=== PATIENT | female | born 1945 | race Caucasian/White ===

== ENCOUNTER 2021-03-26 07:32 | Day surgery (SDC) | payer MEDICARE, MEDICAID ==
[~2021-03-26] VITALS: Ht 153.2 cm; Wt 87.7 kg
[~2021-03-26 07:32] MED LIST: AMLO-258 PO; ASPI-1450 PO; ASPIRIN 81 MG CHEWABLE TABLET PO ONE; BENA10TA76 PO; CHL25 PO; DIAZEPAM 5 MG TABLET PO ONE; DiphenhydrAMINE HCL 50 MG CAPSULE PO ONE; ICOS0.5C PO; ROSU10TA72 PO; SODIUM CHLORIDE 0.9% 1,000 ML IV SCH
[2021-03-26 08:31] LABS: GLUCOMETER DEV NAME(LOC) SDS.; GLUCOSE,POINT OF CARE 103 MG/DL (70-110)
[2021-03-26] MEDS ORDERED: ASPIRIN 81 MG CHEWABLE TABLET ONE (08:36)
[2021-03-26] MEDS ORDERED: DIAZEPAM 5 MG TABLET ONE (08:36)
[2021-03-26] MEDS ORDERED: DiphenhydrAMINE HCL 50 MG CAPSULE ONE (08:37)
[2021-03-26] MEDS ORDERED: DIAZEPAM 5 MG TABLET PO ONE (08:45)
[2021-03-26] MEDS ORDERED: DiphenhydrAMINE HCL 50 MG CAPSULE PO ONE (08:45)
[2021-03-26] MEDS ORDERED: ASPIRIN 81 MG CHEWABLE TABLET PO ONE (08:45)
[2021-03-26] MEDS ORDERED: IOHEXOL 300 MG/ML 150 ML VIAL ONE (09:58)
[2021-03-26] MEDS ORDERED: LIDOCAINE/PF 1% 30 ML VIAL ONE (09:58)
[2021-03-26] MEDS ORDERED: IOHEXOL 300 MG/ML 100 ML VIAL ONE (09:58)
[2021-03-26] MEDS ORDERED: IOHEXOL 300 MG/ML 50 ML VIAL ONE (09:58)
[2021-03-26] MEDS ORDERED: SODIUM BICARBONATE 50 MEQ/50 ML VIAL ONE (09:58)
[2021-03-26] MEDS ORDERED: HEPARIN SODIUM 1000 UNITS/NS 1,000 ML ONE (09:59)
[2021-03-26 10:39] VITALS: BP 126/58
[2021-03-26] MEDS ORDERED: MIDAZOLAM HCL 2 MG/2 ML VIAL ONE (10:40)
[2021-03-26] MEDS ORDERED: FentaNYL CITRATE PF 100 MCG/2 ML VIAL ONE (10:40)
[2021-03-26] MEDS ORDERED: LIDOCAINE 1% 30 ML/SOD BICARB 8.4% 4 ML SQ ONE (11:15)
[2021-03-26] MEDS ORDERED: IOHEXOL 300 MG/ML 150 ML VIAL IARTER ONE (11:15)
[2021-03-26] MEDS ORDERED: MIDAZOLAM HCL 2 MG/2 ML VIAL IVP ONE ×2 (11:15)
[2021-03-26] MEDS ORDERED: HEPARIN SODIUM 1000 UNITS/NS 1,000 ML IARTER ONE (11:15)
[2021-03-26] MEDS ORDERED: HEPARIN SODIUM,PORCINE 5,000 UNITS/ML VIAL IVP ONE (11:15)
[2021-03-26] MEDS ORDERED: FentaNYL CITRATE PF 100 MCG/2 ML VIAL IVP ONE ×2 (11:15)
[2021-03-26] MEDS ORDERED: TICAGRELOR 90 MG TABLET ONE ×2 (11:33→16:41)
[2021-03-26] MEDS ORDERED: TICAGRELOR 90 MG TABLET PO ONE ×2 (11:45→16:30)
[2021-03-26 11:50] VITALS: BP 140/86
[2021-03-26] MEDS ORDERED: SODIUM CHLORIDE 0.9% 1,000 ML IV ONE (12:00)
== END 2021-03-26 17:25 | disposition home or self-care (01) ==
LOC: CATHLAB 07:32
PROVIDERS: ATTEND Internal Medicine Interventional Cardiology
DX: R94.39 Abnormal result of other cardiovascular function study (principal); I25.10 Atherosclerotic heart disease of native coronary artery without angina pectoris; I10 Essential (primary) hypertension; M19.90 Unspecified osteoarthritis, unspecified site; E78.5 Hyperlipidemia, unspecified; I48.19 Other persistent atrial fibrillation; Z90.710 Acquired absence of both cervix and uterus; Z87.891 Personal history of nicotine dependence; Z79.899 Other long term (current) drug therapy
CPT/HCPCS: 82962; 93005; 93458; 99152; 99153; C1760; C1887; C9600; J1644; J2250; J3010; J3490 ×2; Q9967 ×3; 92920; 92928